=== PATIENT | male | born 1930 | race Caucasian/White ===

== ENCOUNTER 2017-04-23 10:47 | Emergency (ER) | payer MEDICARE, BC ==
[~2017-04-23] VITALS: Ht 177.8 cm; Wt 83.9 kg
--- NOTE | ~2017-04-23 | EKG ---
PATIENT: JEANETH REYES UNIT #: [id number] Ventricular Rate: 66 BPM Atrial Rate: 66 BPM P-R Interval: 150 ms QRS Duration: 84 ms Q-T Interval: 424 ms QTC Calculation(Bezet): 444 ms Calculated R [place]: -20 degrees Calculated T [place]: 26 degrees Diagnosis Line: Normal sinus rhythm Diagnosis Line: Cannot rule out Inferior infarct with posterior Diagnosis Line: wall mi (cited on or before 26-JAN-2013) Diagnosis Line: Abnormal ECG Diagnosis Line: When compared with ECG of 26-JAN-2013 02:08, Diagnosis Line: No significant change was found Diagnosis Line: Confirmed by JUAN SHANKS MD ([id number]) on 04/23/2017 Diagnosis Line: 6:32:48 PM INTERPRETING MD: RIMMA GARCIA
[~2017-04-23 10:47] MED LIST: ARTANE2 M1 PO; AVODART0.5 MG PO; CERTAGEN PO; KLONOPIN PO; LIPITOR PO; PRILOSEC PO; SIMVASTATIN20 MG PO; TRIHEXYPHENIDYL2 MG PO
[2017-04-23 11:36] LABS: BASOPHIL% 0.5 % (0-2.5); EOSINOPHIL# 0.1 X10e3 (0-0.7); EOSINOPHIL% 1.1 % (0.0-7.0); HEMATOCRIT 44.9 % (38.0-50.0); HEMOGLOBIN 14.8 gm/dL (13.0-16.0); LYMPHOCYTE# 1.9 X10e3 (1.0-3.5); LYMPHOCYTE% 23.3 % (17.0-45.0); MEAN CELL VOLUME 87.8 FL (83-96); MEAN PLATELET VOLUME 7.8 FL (6.5-11.5); MONOCYTE# 0.5 X10e3 (0-1.0); MONOCYTE% 6.1 % (3.0-12.0); NEUTROPHIL# 5.5 X10e3 (1.5-7.1); PLATELET COUNT 285 X10e3 (140-420); RED BLOOD COUNT 5.11 X10e (3.90-5.60)
[2017-04-23 11:38] LABS: DIFF IND NO
[2017-04-23 11:43] LABS: POC - CKMB 1.2 ng/mL (0.0-7.9); POC - TROPONIN <0.05 ng/mL (<=0.05)
[2017-04-23 12:00] LABS: ALBUMIN SERUM 4.2 g/dL (3.5-5.0); BILIRUBIN, DIRECT 0.2 mg/dL (0.0-0.2); BILIRUBIN,INDIRECT 0.9 mg/dL (0.0-0.9); BILIRUBIN,TOTAL 1.1 mg/dL (0.2-2.0); CALCIUM SERUM 9.1 mg/dL (8.4-10.2); GLOM FILT RATE Estimated 67.4 mL/min (>60); POTASSIUM 3.6 mmol/L (3.5-5.1)
[2017-04-23 12:39] LABS: URINE SOURCE CLEAN CATCH
[2017-04-23 12:43] LABS: URINE APPEARANCE CLEAR; URINE BILIRUBIN NEG (NEG); URINE BLOOD NEG (NEG); URINE COLOR DK YELLOW; URINE GLUCOSE NEG (NEG); URINE KETONE NEG (NEG); URINE LEUKOCYTE ESTERASE NEG (NEG); URINE NITRATE NEG (NEG); URINE PH 6.5 (5-8); URINE PROTEIN NEG (NEG); URINE SPECIFIC GRAVITY 1.011 (1.003-1.035); URINE UROBILINOGEN 0.2 MG/DL (NEG)
[2017-04-23 12:50] LABS: CULTURE INDICATED? NO
[2017-04-23] MEDS ORDERED: LEVETIRACETAM500 M1 PO (12:52)
[2017-04-23] MEDS ORDERED: ARTANE2 M1 PO (12:53)
[2017-04-23] MEDS ORDERED: KLONOPIN1 M1 PO (12:54)
[2017-04-23] MEDS ORDERED: OMEPRAZOLE20 M2 PO (12:54)
[2017-04-23] MEDS ORDERED: LISINOPRIL10 MG PO (12:54)
[2017-04-23] MEDS ORDERED: MECLIZINE HCL12.5 M2 PO (12:55)
[2017-04-23] MEDS ORDERED: SIMVASTATIN20 MG PO (12:55)
[2017-04-23] MEDS ORDERED: BAYER CHEWABLE81 MG PO (12:55)
[2017-04-23] MEDS ORDERED: B COMPLEX1 EACH PO (12:56)
[2017-04-23] MEDS ORDERED: VITAMIN B122500 MCG PO (12:56)
== END 2017-04-23 13:38 | disposition home or self-care (01) ==
LOC: CED 10:47
PROVIDERS: Emergency Medicine
DX: F13.239 Sedative, hypnotic or anxiolytic dependence with withdrawal, unspecified (principal); K21.9 Gastro-esophageal reflux disease without esophagitis; E78.5 Hyperlipidemia, unspecified; I10 Essential (primary) hypertension; Z79.899 Other long term (current) drug therapy
CPT/HCPCS: 36415; 80048; 80076; 81003; 82553; 82947; 84484; 85025; 93005; 96361; 96374; 99285; J2060